=== PATIENT | male | born 1970 | race Caucasian/White ===

== ENCOUNTER → 2017-10-13 | Outpatient (CLI) | payer BC ==
[~2017-10-13] MED LIST: ALEVE220 MG PO; AMITRIPTYLINE H50 M3; ASPIRIN EC325 MG PO; ASPIRIN325 PO; BACTRIM DS TAB1 EACH PO; BENTYL 20 MG TA20 M1 PO; COLACE100 MG PO; HYDROCODON-ACE1 EAC7 PO; HYDROCODONE-AP1 EAC6 PO; KEFLEX500 MG PO; LOPRESSOR50 PO; NORCO 7.5-3251 EACH PO; OXAYDO5 MG PO; OXYCODONE HCL 55 MG PO; PEPCID AC20 M1 PO; PRINIVIL40 MG; SENNA8.6 MG PO; VALIUM5 MG
== END ==
LOC: M.LAB 16:26
DX: S81.812A Laceration without foreign body, left lower leg, initial encounter (principal); X58.XXXA Exposure to other specified factors, initial encounter; Y93.89 Activity, other specified; Y92.89 Other specified places as the place of occurrence of the external cause; Y99.8 Other external cause status

== ENCOUNTER → 2018-06-11 | Day surgery (SDC) | payer BC ==
--- NOTE | 2018-06-11 11:11 | EKG ---
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 : 1970 Requested By: Rafael Jones Order Number: [id number] Reading MD: Rafael Maldonado Measurements Intervals [place] Rate: 49 P: 39 OK: 171 QRS: -27 QRSD: 102 T: 18 QT: 444 QTc: 401 Interpretive Statements Sinus bradycardia Borderline left axis deviation Abnormal R-wave progression, late transition Compared to ECG 04/02/2017 10:18:16 Sinus rhythm no longer present Electronically Signed On 06-11-2018 11:10:50 CDT by Rafael Maldonado [email or web address] <ELECTRONICALLY SIGNED> By: Rafael Maldonado MD, [facility] 06/11/18 1110 075 075 Rafael Maldonado MD, FACC /EPI
--- NOTE | 2018-07-09 08:16 | OP ---
[address] [address] OPERATIVE REPORT Name: DIONE MERRILL JR Room: [facility]#: [id number] Admission: 06/11/18 Attend Phys: Dione Jones DO Discharge: Date of : 72 Report #: [id number] THIS REPORT FOR: //name// CC: Dione Menjivar DATE OF SERVICE: 06/11/2018 PREOPERATIVE DIAGNOSIS: Retained painful hardware, left tibia. POSTOPERATIVE DIAGNOSIS: Retained painful hardware, left tibia. PROCEDURE: Hardware removal of deep plate and screws, left tibia. SURGEON: Dione Jones DO. LANDING GEAR MECHANIC: Dakotah Myers DO. COMPLICATIONS: None. DRAINS: None. ESTIMATED BLOOD LOSS: 20 mL. ANTIBIOTICS: Ancef 2 grams IV preoperatively. SPECIMENS REMOVED: Cultures were obtained of the plate and screws. CONDITION OF THE PATIENT: Stable to PACU. INDICATIONS: The patient is a pleasant 47-year-old male seen in my clinic regarding previous left tibial plateau fracture. He underwent open reduction and internal fixation of the left tibia with myself approximately one year ago. His fracture has healed. Unfortunately, he has had a chronic wound that has been appearing off and on over the last few months distal to the plate, but near his previous incision. He had initially gotten better with Bactrim. Unfortunately, the small area of wound dehiscence continues to recur. I saw him in my clinic a few weeks ago and he was having significant pain, no obvious signs of infection. We have discussed taking out the plate previously and he did wish to have this done. I discussed the procedure, risks, benefits, complications and indications in detail with him. Risks discussed include but not limited to infection, neurovascular injury, wound healing complications, need for further surgery, posttraumatic arthritis, DVT, fracture, PE and anesthesia complications. He did agree to this plan and [place] [address] OPERATIVE REPORT Name: DIONE MERRILL JR Room: [facility]#: [id number] Admission: 06/11/18 Attend Phys: Dione Jones DO Discharge: Date of : 72 Report #: [id number] DESCRIPTION OF PROCEDURE: After consent was obtained, the patient was taken to the operative suite and placed in the supine position on operating room table. He was given benefit of general anesthesia. A well-padded tourniquet was placed on the left upper thigh. Left leg was then sterilely prepped and draped in the usual fashion. Preop timeout was obtained to confirm the correct patient, procedure and operative site. The tourniquet was inflated to 300 mmHg. Utilizing a previous incision, a skin incision was made. Sharp dissection was taken down to the level of the plate. The plate was fairly easily palpated and identified. Once this was isolated, I used a [place] elevator to expose the screw heads proximally and distally. Once good visualization was obtained, the screws were removed without any significant difficulty. The plate was also fairly easily removed. There was a small tract from the distal end of the plate to the area of open wound he had just anterior to the incision. We debrided this fairly thoroughly with a curette and a rongeur. X-rays were obtained to confirm removal of all hardware. Wound was then thoroughly irrigated with sterile saline. Please note, I did take cultures of the plate although there were no obvious signs of infection here or in the bone. Once thorough irrigation was performed, the subcutaneous tissue was then closed with 2-0 Monocryl in inverted interrupted fashion followed by 3-0 nylon to the skin. He did tolerate the procedure well without complication. Sterile dressing was applied in the form of Xeroform, 4 x 4s, ABD pads, Kerlix and Luciano bandage. He was taken to the recovery room in stable condition. All needle and sponge counts were correct x 2 at the end of the procedure. <ELECTRONICALLY SIGNED> By: Dione Jones DO 07/09/18 0816 1051 [id number] Jones DO /char
== END | disposition home or self-care (01) ==
LOC: M.SUR 07:14
DX: T84.84XA Pain due to internal orthopedic prosthetic devices, implants and grafts, initial encounter (principal); M17.32 Unilateral post-traumatic osteoarthritis, left knee; Z88.8 Allergy status to other drugs, medicaments and biological substances; Z79.899 Other long term (current) drug therapy; Z79.82 Long term (current) use of aspirin; Y83.8 Other surgical procedures as the cause of abnormal reaction of the patient, or of later complication, without mention of misadventure at the time of the procedure; Y92.89 Other specified places as the place of occurrence of the external cause